=== PATIENT | male | born 1990 | race African-American/Black ===

== ENCOUNTER 2019-09-08 08:59 | Emergency (ER) | payer OTHER ==
[~2019-09-08] VITALS: Ht 182.9 cm; Wt 97.5 kg
[~2019-09-08 08:59] MED LIST: FLOVENT HFA 2220 MCG INH; PREDNISONE 20 M20 MG PO; VENTOLIN HFA 1818 GM INH
[2019-09-08 09:54] LABS: ABSOLUTE NEUTROPHILS 3.1 thou/uL (1.4-8.2); BASOPHILS 0.6 % (0.0-2.0); EOSINOPHILS 8.6 % (0.0-3.0); HEMATOCRIT 43.4 % (42.0-52.0); HEMOGLOBIN 14.4 gm/dL (14.0-18.0); LYMPHOCYTES 32.1 % (24.0-44.0); MCH 29.3 pg (26.0-34.0); MCHC 33.3 g/dL (28.0-37.0); MCV 87.8 fL (80.0-100.0); MONOCYTES 6.5 % (1.0-8.0); PLATELET COUNT 244 thou/uL (150-400); POLYS 52.2 % (36.0-66.0); RBC 4.94 mil/uL (4.50-6.00); RDW 14.2 % (10.5-14.5); WBC 5.9 thou/uL (4.0-11.0)
[2019-09-08 10:05] LABS: CALCIUM 8.7 mg/dL (8.5-10.1); POTASSIUM 4.6 mmol/L (3.5-5.1)
[2019-09-08 10:06] LABS: MAGNESIUM 2.1 mg/dL (1.8-2.4)
[2019-09-08] MEDS ORDERED: ZOFRAN ODT4 MG PO (11:08)
[2019-09-08 11:25] VITALS: BP 136/68
== END 2019-09-08 11:25 | disposition home or self-care (01) ==
LOC: ER 08:59
PROVIDERS: Emergency Medicine
DX: K52.9 Noninfective gastroenteritis and colitis, unspecified (principal); R11.2 Nausea with vomiting, unspecified; J45.909 Unspecified asthma, uncomplicated; Z79.899 Other long term (current) drug therapy; Z87.891 Personal history of nicotine dependence

== ENCOUNTER 2020-01-06 05:48 | Emergency (ER) | payer OTHER ==
[~2020-01-06] VITALS: Ht 182.9 cm; Wt 102.1 kg
[~2020-01-06 05:48] MED LIST changes: +ZOFRAN ODT4 MG PO
[2020-01-06] MEDS ORDERED: PROAIR HFA8.5 GM INH (06:21)
[2020-01-06] MEDS ORDERED: PREDNISONE50 MG PO (06:21)
[2020-01-06 07:32] VITALS: BP 145/68
== END 2020-01-06 07:33 | disposition home or self-care (01) ==
LOC: ER 05:48
DX: J45.901 Unspecified asthma with (acute) exacerbation (principal); Z87.891 Personal history of nicotine dependence

== ENCOUNTER 2020-02-15 21:46 | Emergency (ER) | payer OTHER ==
[~2020-02-15] VITALS: Ht 182.9 cm; Wt 96.2 kg
[~2020-02-15 21:46] MED LIST changes: +PREDNISONE50 MG PO; +PROAIR HFA8.5 GM INH
[2020-02-15] MEDS ORDERED: PREDNISONE 20 M20 M1 PO (23:03)
[2020-02-15] MEDS ORDERED: PROAIR HFA8.5 GM INH (23:03)
[2020-02-16 00:05] VITALS: BP 137/88
== END 2020-02-16 00:05 | disposition home or self-care (01) ==
LOC: ER 21:46
DX: J45.909 Unspecified asthma, uncomplicated (principal); Z87.891 Personal history of nicotine dependence; Z79.899 Other long term (current) drug therapy

== ENCOUNTER 2020-04-12 00:40 | Emergency (ER) | payer OTHER ==
[~2020-04-12] VITALS: Ht 180.3 cm; Wt 102.1 kg
[~2020-04-12 00:40] MED LIST changes: +PREDNISONE 20 M20 M1 PO
[2020-04-12] MEDS ORDERED: PROAIR HFA8.5 GM INH (02:26)
[2020-04-12] MEDS ORDERED: PREDNISONE 20 M20 M1 PO (02:26)
[2020-04-12 02:36] VITALS: BP 141/48
== END 2020-04-12 02:45 | disposition home or self-care (01) ==
LOC: ER 00:40
DX: J45.901 Unspecified asthma with (acute) exacerbation (principal); Z20.822 Contact with and (suspected) exposure to COVID-19; Z79.899 Other long term (current) drug therapy; Z87.891 Personal history of nicotine dependence